=== PATIENT | male | born 1995 ===

== ENCOUNTER 2018-02-22 13:59 | Emergency (ER) | payer OTHER ==
[2018-02-22 14:14] VITALS: PULSE 72; TEMP 98.5
[2018-02-22 15:42] LABS: BASO # 0.1 K/uL (0.0-0.2); BASO % 0.7 % (0.0-2.0); EOS # 0.1 K/uL (0.0-0.7); HEMOGLOBIN 16.8 g/dL (12.0-18.0); LYMPH # 2.6 K/uL (1.0-4.3); LYMPH % 20.3 % (20.0-40.0); MEAN CELL VOLUME 86.6 fL (80.0-94.0); MEAN CORPUSCULAR HEMOGLOBIN 30.1 pg (27.0-31.0); MEAN CORPUSCULAR HGB CONC 34.7 g/dL (33.0-37.0); MEAN PLATELET VOLUME 8.4 fL (7.2-11.7); MONO # 1.5 K/uL (0.0-0.8); MONO % 12.2 % (0.0-10.0); NEUT # 8.3 K/uL (1.8-7.0); NEUT % 65.8 % (50.0-75.0); NRBC % 0.2 % (0.0-2.0); RBC 5.6 Mil/uL (4.40-5.90); RED CELL DISTRIBUTION WIDTH 13.2 % (11.5-14.5); WHITE BLOOD COUNT 12.7 K/uL (4.8-10.8)
[2018-02-22 15:56] LABS: ALB/GLOB RATIO 1.3 (1.0-2.1); ALBUMIN 4.8 g/dL (3.5-5.0); ALT/SGPT 19 U/L (21-72); AST/SGOT 45 U/L (17-59); BLOOD UREA NITROGEN 18 mg/dL (9-20); CALCIUM 9.8 mg/dl (8.6-10.4); GFR AFRICAN-AMERICAN > 60; GFR NON-AFRICAN AMERICAN > 60
[2018-02-22 16:03] LABS: PROTHROMBIN TIME 10.7 SECONDS (9.7-12.2)
[2018-02-22 16:04] LABS: D DIMER < 200 ng/mlDDU (0-243); PARTIAL THROMBOPLASTIN TIME 30 SECONDS (21-34)
--- NOTE | 2018-02-22 16:04 | C.PDOC ---
History Of Present Illness 22 yo male w/o significant PMHx come in for evaluation of Left sided sharp intermittent chest pain developed since yesterday. Pt reports, pain is localized , non-radiating, worse with movement. Pt denies previous hx of card. ds or resp. ds. Pt denies recent illness, fever, chills, headache, dizziness, visual changes, focal deficits, neck pain, SOB, dyspnea, diaphoresis, palpitation, cough, wheezing, abd. pain, N/V/D, back pain. Ambulate to ED for evaluation, not in any apparent distress. Time Seen by Provider: 02/22/18 14:53 Chief Complaint (Nursing): Chest Pain History Per: Patient Past Medical History Reviewed: Historical Data, Nursing Documentation, Vital Signs Vital Signs: Last Vital Signs Temp 98.5 F 02/22/18 14:10 Pulse 72 02/22/18 14:10 Resp 20 02/22/18 14:10 BP 124/80 02/22/18 14:10 Pulse Ox 99 02/22/18 16:18 - Medical History PMH: No Chronic Diseases Surgical History: No Surg Hx Family History: States: No Known Family Hx - Social History Hx Tobacco Use: No Hx Alcohol Use: Yes Hx Substance Use: No - Immunization History Hx Tetanus Toxoid Vaccination: No Hx Influenza Vaccination: No Hx Pneumococcal Vaccination: No Review Of Systems Except As Marked, All Systems Reviewed And Found Negative. Constitutional: Negative for: Fever, Chills Eyes: Negative for: Vision Change ENT: Negative for: Ear Discharge, Nose Discharge, Throat Pain, Throat Swelling Cardiovascular: Positive for: Chest Pain. Negative for: Palpitations, Edema, Light Headedness Respiratory: Negative for: Cough, Shortness of Breath, SOB with Excertion, Sputum, Wheezing Gastrointestinal: Negative for: Nausea, Vomiting, Abdominal Pain, Diarrhea Genitourinary: Negative for: Dysuria Musculoskeletal: Negative for: Neck Pain, Back Pain Skin: Negative for: Rash Neurological: Negative for: Weakness, Numbness, Altered Mental Status, Headache , Dizziness Physical Exam - Physical Exam Appears: Well, Non-toxic, No Acute Distress Skin: Normal Color, Warm, Dry, No Rash, No Ecchymosis Head: Normacephalic Eye(s): bilateral: PERRL Ear(s): Bilateral: Normal Nose: No Flaring, No Discharge, No Tenderness Oral Mucosa: Moist, No Drooling Tongue: Normal Appearing Lips: Normal Appearing Throat: No Erythema, No Exudate, No Drooling Neck: Trachea Midline, No Midline Cervical Tenderness, No Paracervical Tenderness, No Step Off Deformity, Supple Chest: No Deformity, Tenderness (Left sided anterior lateral chest wall.), No Ecchymosis, No Subcutaneous Emphysema Cardiovascular: Rhythm Regular, No Murmur, No JVD Respiratory: No Decreased Breath Sounds, No Accessory Muscle Use, No Stridor, No Wheezing Gastrointestinal/Abdominal: Soft, No Tenderness, No Distention, No Guarding Back: No CVA Tenderness, No Vertebral Tenderness Extremity: Normal ROM, No Deformity, No Swelling Neurological/Psych: Oriented x3, Normal Speech ED Course And Treatment - Laboratory Results Result Diagrams: 02/22/18 15:26 02/22/18 15:26 Lab Interpretation: No Acute Changes ECG: Interpreted By Me, Viewed By Me Interpretation Of ECG: SR@79/min, NAD, T wave inversion in III, no acute ST-T changes. O2 Sat by Pulse Oximetry: 99 Pulse Ox Interpretation: Normal - Radiology CXR: Interpreted by Me, Viewed By Me CXR Interpretation: Yes: No Acute Disease Progress Note: On re-evaluation, pt is afebrile, hemodynamicaly stable. Non- toxic. FlotFHl05% RA. Neck: Supple, (-) JVD, (-) carotid bruits B/L. ENT: No acute findings. Lungs: CTA B/L, BS equal B/L. CVS: (+)S1S2, reg. ABd: benign , (-) guarding, (-) rebound. Back: (-) CVA tenderness. Neurologicaly intact. Blood work review and appears normal. Troponin I, D-DImer- normal. EKG, CXR- normal study. Pt has clinical findings c/w left sided reproducible chest pain. Pt advised and ref. to F/U with PMD in 2-3 days for re-eval. return to ED if any worsening or new changes. Disposition Counseled Patient/Family Regarding: Studies Performed, Diagnosis, Need For Followup, Rx Given - Disposition Referrals: [facility] [Outside] Disposition: HOME/ ROUTINE Disposition Time: 16:12 Condition: STABLE Additional Instructions: Avoid strenuous physical activity for 1 week Take medication as prescribed as need Follow up with PMD in 2-3 days for re-evaluation. Return to ED if any worsening ro new changes. Prescriptions: Ibuprofen [Motrin Tab] 400 mg PO Q6 #20 tab Methocarbamol [Robaxin] 500 mg PO TID #14 tab Instructions: Chest Pain Forms: [facility] (Yi) Print Language: INDONESIAN - Clinical Impression Clinical Impression: Chest pain
--- NOTE | 2018-02-22 16:16 | RAD ---
HISTORY: Chest pain. COMPARISON: No prior. TECHNIQUE: Chest PA and lateral FINDINGS: LUNGS: No active pulmonary disease. PLEURA: No significant pleural effusion identified. No pneumothorax apparent. CARDIOVASCULAR: Normal. OSSEOUS STRUCTURES: No significant abnormalities. VISUALIZED UPPER ABDOMEN: Normal. OTHER FINDINGS: None. IMPRESSION: No active disease.
[2018-02-22 16:32] LABS: URINE BACTERIA RARE (<OCC); URINE BILIRUBIN NEGATIVE (NEGATIVE); URINE BLOOD NEGATIVE (NEGATIVE); URINE CLARITY Hazy (Clear); URINE COLOR Yellow (YELLOW); URINE GLUCOSE (UA) NORMAL (Normal); URINE LEUKOCYTE ESTERASE NEG Leu/uL (Negative); URINE PROTEIN NEGATIVE (NEGATIVE); URINE UROBILINOGEN NORMAL mg/dL (0.2-1.0)
[2018-02-22 16:35] LABS: BARBITURATES, UR NEGATIVE (NEGATIVE); BENZODIAZEPINES, UR NEGATIVE (NEGATIVE); OPIATES, UR NEGATIVE (NEGATIVE); PHENCYCLIDINE, UR NEGATIVE (NEGATIVE)
[2018-02-22 17:18] VITALS: BP 114/70; RESP 18; O2SAT 98
--- NOTE | 2018-02-23 23:55 | CARD ---
APPROVED REPORT EKG Measurement Heart [id number] <Conclusion> Normal sinus rhythm with sinus arrhythmia Voltage criteria for left ventricular hypertrophy Abnormal ECG
== END 2018-02-22 17:17 | disposition home or self-care (01) ==
LOC: C.ER 13:59
DX: R07.9 Chest pain, unspecified (principal)
CPT/HCPCS: 71046; 80053; 80324; 80345; 80346; 80349; 80353; 80358; 80361; 81001; 83992; 84484; 85025; 85378; 85610; 85730; 93005; 96374; 99284; J1885